=== PATIENT | female | born 1960 | race Two or more races ===

== ENCOUNTER 2018-10-03 17:35 | Inpatient (IN) | payer MEDICARE, OTHER ==
[~2018-10-03] VITALS: Ht 154.9 cm; Wt 63.7 kg
[2018-10-03] MEDS ORDERED: PRAZ1 PO (17:59)
[2018-10-03] MEDS ORDERED: FOLI1 PO (17:59)
[2018-10-03] MEDS ORDERED: DICY20 PO (17:59)
[2018-10-03] MEDS ORDERED: DIVA250T45 PO (17:59)
[2018-10-03] MEDS ORDERED: CEPH500 PO (17:59)
[2018-10-03] MEDS ORDERED: ZOLP10TA7 PO (17:59)
[2018-10-03] MEDS ORDERED: TERB250 PO (17:59)
[2018-10-03] MEDS ORDERED: CHOL200059 PO (17:59)
[2018-10-03] MEDS ORDERED: METO25XL PO (17:59)
[2018-10-03] MEDS ORDERED: CHOL378P PO (17:59)
[2018-10-03] MEDS ORDERED: SODIUM CHLORIDE 0.9% 1,000 ML IV ONE (18:30)
[2018-10-03 18:57] LABS: BASOPHILS % (AUTO) 0.3 % (0.0-2.0); EOSINOPHILS % (AUTO) 0 % (1.0-6.0); HEMATOCRIT 38.9 % (36-46); HEMOGLOBIN 12.5 g/dL (12.0-16.0); LYMPHOCYTES # (AUTO) 1.2 K/uL (1.0-4.8); LYMPHOCYTES % (AUTO) 8.3 % (22.0-44.0); MEAN CORPUSCULAR HEMOGLOBIN 28.3 pg (26.0-34.0); MEAN CORPUSCULAR HGB CONC 32.1 G/dL (31.0-37.0); MEAN CORPUSCULAR VOLUME 88 fL (80-100); NEUTROPHILS # (AUTO) 11.8 K/uL (1.8-7.7); NEUTROPHILS % (AUTO) 84.4 % (40.0-70.0); PLATELET COUNT (AUTO) 259 K/uL (150-450)
[2018-10-03 19:13] LABS: ANION GAP 12 mmol/L (8-16); CALCIUM, TOTAL 9.5 mg/dL (8.8-10.5); CARBON DIOXIDE 25 mmol/L (22-29); CHLORIDE 102 mmol/L (98-107); CREATININE 0.78 mg/dL (0.60-1.30); GLOMERULAR FILTR. RATE CALC > 60 mL/min (>60); GLUCOSE,RANDOM 110 mg/dL (70-110); SODIUM SERUM 139 mmol/L (136-145); UREA NITROGEN, BLOOD 15 mg/dL (7-18)
[2018-10-03 19:19] LABS: ALANINE AMINOTRANSFERASE 30 U/L (12-78); ALBUMIN 3.1 g/dL (3.4-5.0); ALKALINE PHOSPHATASE 106 U/L (46-116); ASPARTATE AMINOTRANSFERASE 30 U/L (15-37); BILIRUBIN,TOTAL 0.3 mg/dL (0.1-1.0); TOTAL PROTEIN, SERUM 7.5 g/dL (6.4-8.2)
[2018-10-03 23:15] LABS: APPEARANCE,URINE CLEAR (CLEAR); BILIRUBIN,URINE NEGATIVE (NEGATIVE); GLUCOSE, URINE (UA) NEGATIVE (NEGATIVE); KETONES,URINE TRACE mg/dL (NEGATIVE); LEUKOCYTE ESTERASE ,URINE NEGATIVE (NEGATIVE); NITRATE,URINE NEGATIVE (NEGATIVE); OCCULT BLOOD,URINE NEGATIVE (NEGATIVE); PROTEIN,URINE NEGATIVE (NEGATIVE); UROBILINOGEN,URINE 0.2 mg/dL (<=1.0)
[2018-10-04] VITALS (7 sets, daily range): BP systolic 100–151; BP diastolic 50–81
[2018-10-04] MEDS ORDERED: 0.9% SODIUM CHLORIDE 10 ML SYRINGE IVP PRN ×2 (00:45→05:00)
[2018-10-04] MEDS ORDERED: ACETAMINOPHEN 325 MG TABLET PO PRN ×2 (00:45→05:00)
[2018-10-04] MEDS ORDERED: ONDANSETRON HCL 4 MG/2 ML VIAL IVP PRN ×2 (00:45→05:00)
[2018-10-04] MEDS ORDERED: SODIUM CHLORIDE 0.9% 1,000 ML IV ONE ×2 (00:45)
[2018-10-04] MEDS ORDERED: SODIUM CHLORIDE 0.9% 250 ML IV ONE ×2 (01:04→02:23)
[2018-10-04 01:18] LABS: C-REACTIVE PROTEIN QUANT 1.85 mg/dL (0.00-0.30)
[2018-10-04 01:25] LABS: LACTIC ACID 1.3 mmol/L (0.4-2.0)
[2018-10-04] MEDS ORDERED: CefTRIAXone 1 GM/DEXTROSE 50 ML IV ONE (01:30)
[2018-10-04] MEDS ORDERED: ACETAMINOPHEN 1000 MG/ISO-OSM 100 ML IV ONE (01:45)
[2018-10-04] MEDS ORDERED: ZOLPIDEM TARTRATE 5 MG TABLET PO PRN (05:00)
[2018-10-04] MEDS ORDERED: MAGNESIUM SULFATE 2 GM/WATER 50 ML IV PRN (05:00)
[2018-10-04] MEDS ORDERED: IPRATROPIUM BROMIDE 0.5 MG/2.5 ML NEB SOLUTION NEB PRN (05:00)
[2018-10-04] MEDS ORDERED: POTASSIUM CHL 10 MEQ/WATER 50 ML IV PRN (05:00)
[2018-10-04] MEDS ORDERED: POTASSIUM CHLORIDE 20 MEQ ER TABLET PO PRN (05:00)
[2018-10-04] MEDS ORDERED: MAGNESIUM OXIDE 400 MG TABLET PO PRN (05:00)
[2018-10-04] MEDS ORDERED: ALBUTEROL SULFATE 2.5 MG/0.5 ML NEB SOLUTION NEB PRN (05:00)
[2018-10-04] MEDS ORDERED: MAGNESIUM SULFATE 4 GM/WATER 100 ML IV PRN (05:00)
[2018-10-04] MEDS: SODIUM CHLORIDE 0.9% 1,000 ML IV SCH ×2 (05:41→21:36)
[2018-10-04 07:38] LABS: ALBUMIN 2.4 g/dL (3.4-5.0)
[2018-10-04] MEDS ORDERED: ALBUTEROL SULFATE 2.5 MG/0.5 ML NEB SOLUTION NEB SCH (08:00)
[2018-10-04] MEDS ORDERED: IPRATROPIUM BROMIDE 0.5 MG/2.5 ML NEB SOLUTION NEB SCH (08:00)
[2018-10-04] MEDS: PANTOPRAZOLE SODIUM 40 MG DR TABLET PO SCH (09:22)
[2018-10-04] MEDS: CHOLECALCIFEROL (VIT D3) 2,000 UNITS TABLET PO SCH (09:22)
[2018-10-04] MEDS: DICYCLOMINE HCL 20 MG TABLET PO SCH (09:22)
[2018-10-04] MEDS: METOPROLOL SUCCINATE 25 MG ER TABLET PO SCH (09:22)
[2018-10-04] MEDS: FOLIC ACID 1 MG TABLET PO SCH (09:22)
[2018-10-04] MEDS: HEPARIN SODIUM,PORCINE 5,000 UNITS/ML VIAL SQ SCH ×2 (09:22→17:02)
[2018-10-04] MEDS: TERBINAFINE HCL 250 MG TABLET PO SCH (09:22)
[2018-10-04] MEDS: DOXYCYCLINE HYCLATE 100 MG in DEXTROSE 5%-WATER 100 ML IV SCH ×2 (13:43→21:37)
[2018-10-04] MEDS: PRAZOSIN HCL 1 MG CAPSULE PO SCH (21:36)
[2018-10-05] MEDS: HEPARIN SODIUM,PORCINE 5,000 UNITS/ML VIAL SQ SCH ×3 (00:52→17:07)
[2018-10-05] MEDS: CefTRIAXone 1 GM/DEXTROSE 50 ML IV SCH (00:54)
[2018-10-05 05:36] VITALS: BP 123/67
[2018-10-05 06:47] LABS: BASOPHILS % (AUTO) 0.2 % (0.0-2.0); EOSINOPHILS % (AUTO) 0.4 % (1.0-6.0); HEMATOCRIT 33.7 % (36-46); HEMOGLOBIN 10.9 g/dL (12.0-16.0); LYMPHOCYTES # (AUTO) 3.3 K/uL (1.0-4.8); MEAN CORPUSCULAR HEMOGLOBIN 28.6 pg (26.0-34.0); MEAN CORPUSCULAR HGB CONC 32.3 G/dL (31.0-37.0); MEAN CORPUSCULAR VOLUME 89 fL (80-100); MONOCYTES % (AUTO) 7.7 % (2.0-9.0); NEUTROPHILS # (AUTO) 9.2 K/uL (1.8-7.7); NEUTROPHILS % (AUTO) 67.7 % (40.0-70.0); PLATELET COUNT (AUTO) 240 K/uL (150-450); RED CELL DISTRIBUTION WIDTH 14.1 % (11.5-14.5)
[2018-10-05 06:59] LABS: ANION GAP 9 mmol/L (8-16); CALCIUM, TOTAL 8.6 mg/dL (8.8-10.5); CARBON DIOXIDE 28 mmol/L (22-29); CHLORIDE 104 mmol/L (98-107); CREATININE 0.59 mg/dL (0.60-1.30); GLOMERULAR FILTR. RATE CALC > 60 mL/min (>60); GLUCOSE,RANDOM 83 mg/dL (70-110); POTASSIUM 3.6 mmol/L (3.5-5.1); SODIUM SERUM 141 mmol/L (136-145); UREA NITROGEN, BLOOD 7 mg/dL (7-18)
[2018-10-05 08:07] VITALS: BP 149/74
[2018-10-05] MEDS: SODIUM CHLORIDE 0.9% 1,000 ML IV SCH (08:42)
[2018-10-05] MEDS: PANTOPRAZOLE SODIUM 40 MG DR TABLET PO SCH (08:42)
[2018-10-05] MEDS: FOLIC ACID 1 MG TABLET PO SCH (08:42)
[2018-10-05] MEDS: METOPROLOL SUCCINATE 25 MG ER TABLET PO SCH (08:42)
[2018-10-05] MEDS: TERBINAFINE HCL 250 MG TABLET PO SCH (08:43)
[2018-10-05] MEDS: DICYCLOMINE HCL 20 MG TABLET PO SCH (08:43)
[2018-10-05] MEDS: CHOLECALCIFEROL (VIT D3) 2,000 UNITS TABLET PO SCH (08:43)
[2018-10-05] MEDS: DOXYCYCLINE HYCLATE 100 MG in DEXTROSE 5%-WATER 100 ML IV SCH ×2 (08:46→20:52)
[2018-10-05] MEDS ORDERED: MAGNESIUM SULFATE 2 GM/WATER 50 ML IV ONE ×2 (11:00→11:30)
[2018-10-05 11:20] VITALS: BP 130/70
[2018-10-05 15:29] VITALS: BP 119/74
[2018-10-05 19:41] VITALS: BP 119/78
[2018-10-05] MEDS: PRAZOSIN HCL 1 MG CAPSULE PO SCH (20:52)
[2018-10-05 23:58] VITALS: BP 120/72
[2018-10-06] VITALS (7 sets, daily range): BP systolic 118–142; BP diastolic 62–101
[2018-10-06] MEDS: SODIUM CHLORIDE 0.9% 1,000 ML IV SCH ×2 (00:13→15:27)
[2018-10-06] MEDS: CefTRIAXone 1 GM/DEXTROSE 50 ML IV SCH (00:14)
[2018-10-06] MEDS: HEPARIN SODIUM,PORCINE 5,000 UNITS/ML VIAL SQ SCH ×3 (00:14→15:33)
[2018-10-06 06:30] LABS: BASOPHILS % (AUTO) 0.4 % (0.0-2.0); EOSINOPHILS % (AUTO) 0.6 % (1.0-6.0); HEMATOCRIT 35.3 % (36-46); HEMOGLOBIN 11.4 g/dL (12.0-16.0); LYMPHOCYTES # (AUTO) 3.1 K/uL (1.0-4.8); LYMPHOCYTES % (AUTO) 29.9 % (22.0-44.0); MEAN CORPUSCULAR HEMOGLOBIN 28.9 pg (26.0-34.0); MEAN CORPUSCULAR HGB CONC 32.2 G/dL (31.0-37.0); MEAN CORPUSCULAR VOLUME 90 fL (80-100); MONOCYTES # (AUTO) 0.9 K/uL (0.1-1.0); MONOCYTES % (AUTO) 8.5 % (2.0-9.0); NEUTROPHILS # (AUTO) 6.3 K/uL (1.8-7.7); NEUTROPHILS % (AUTO) 60.6 % (40.0-70.0); PLATELET COUNT (AUTO) 249 K/uL (150-450); RED BLOOD CELL COUNT(AUTO) 3.93 MIL/uL (4.00-5.20)
[2018-10-06 06:41] LABS: ANION GAP 9 mmol/L (8-16); CALCIUM, TOTAL 8.8 mg/dL (8.8-10.5); CARBON DIOXIDE 27 mmol/L (22-29); CHLORIDE 105 mmol/L (98-107); CREATININE 0.59 mg/dL (0.60-1.30); GLOMERULAR FILTR. RATE CALC > 60 mL/min (>60); GLUCOSE,RANDOM 89 mg/dL (70-110); POTASSIUM 3.5 mmol/L (3.5-5.1); SODIUM SERUM 141 mmol/L (136-145); UREA NITROGEN, BLOOD 8 mg/dL (7-18)
[2018-10-06] MEDS: PANTOPRAZOLE SODIUM 40 MG DR TABLET PO SCH (08:03)
[2018-10-06] MEDS: CHOLECALCIFEROL (VIT D3) 2,000 UNITS TABLET PO SCH (08:03)
[2018-10-06] MEDS: METOPROLOL SUCCINATE 25 MG ER TABLET PO SCH (08:03)
[2018-10-06] MEDS: TERBINAFINE HCL 250 MG TABLET PO SCH (08:03)
[2018-10-06] MEDS: FOLIC ACID 1 MG TABLET PO SCH (08:03)
[2018-10-06] MEDS: DICYCLOMINE HCL 20 MG TABLET PO SCH (08:04)
[2018-10-06] MEDS: DOXYCYCLINE HYCLATE 100 MG in DEXTROSE 5%-WATER 100 ML IV SCH ×2 (08:04→21:01)
[2018-10-06] MEDS: PRAZOSIN HCL 1 MG CAPSULE PO SCH (20:59)
[2018-10-07] MEDS: CefTRIAXone 1 GM/DEXTROSE 50 ML IV SCH (00:12)
[2018-10-07] MEDS: HEPARIN SODIUM,PORCINE 5,000 UNITS/ML VIAL SQ SCH ×3 (00:13→16:48)
[2018-10-07 04:34] VITALS: BP 127/82
[2018-10-07 05:31] LABS: BASOPHILS % (AUTO) 0.3 % (0.0-2.0); EOSINOPHILS % (AUTO) 0.7 % (1.0-6.0); HEMATOCRIT 35.4 % (36-46); HEMOGLOBIN 11.4 g/dL (12.0-16.0); LYMPHOCYTES # (AUTO) 4.3 K/uL (1.0-4.8); LYMPHOCYTES % (AUTO) 42.8 % (22.0-44.0); MEAN CORPUSCULAR HEMOGLOBIN 28.6 pg (26.0-34.0); MEAN CORPUSCULAR HGB CONC 32.1 G/dL (31.0-37.0); MEAN CORPUSCULAR VOLUME 89 fL (80-100); MONOCYTES % (AUTO) 9.6 % (2.0-9.0); NEUTROPHILS # (AUTO) 4.6 K/uL (1.8-7.7); NEUTROPHILS % (AUTO) 46.6 % (40.0-70.0); PLATELET COUNT (AUTO) 270 K/uL (150-450); RED BLOOD CELL COUNT(AUTO) 3.97 MIL/uL (4.00-5.20)
[2018-10-07 05:41] LABS: ANION GAP 8 mmol/L (8-16); CARBON DIOXIDE 28 mmol/L (22-29); CHLORIDE 105 mmol/L (98-107); CREATININE 0.58 mg/dL (0.60-1.30); GLOMERULAR FILTR. RATE CALC > 60 mL/min (>60); GLUCOSE,RANDOM 90 mg/dL (70-110); POTASSIUM 3.7 mmol/L (3.5-5.1); SODIUM SERUM 141 mmol/L (136-145); UREA NITROGEN, BLOOD 8 mg/dL (7-18)
[2018-10-07] MEDS: SODIUM CHLORIDE 0.9% 1,000 ML IV SCH (08:08)
[2018-10-07] MEDS: FOLIC ACID 1 MG TABLET PO SCH (08:08)
[2018-10-07] MEDS: TERBINAFINE HCL 250 MG TABLET PO SCH (08:08)
[2018-10-07] MEDS: METOPROLOL SUCCINATE 25 MG ER TABLET PO SCH (08:08)
[2018-10-07] MEDS: PANTOPRAZOLE SODIUM 40 MG DR TABLET PO SCH (08:08)
[2018-10-07] MEDS: DICYCLOMINE HCL 20 MG TABLET PO SCH (08:08)
[2018-10-07] MEDS: CHOLECALCIFEROL (VIT D3) 2,000 UNITS TABLET PO SCH (08:09)
[2018-10-07] MEDS: DOXYCYCLINE HYCLATE 100 MG in DEXTROSE 5%-WATER 100 ML IV SCH ×2 (08:18→20:07)
[2018-10-07 08:24] VITALS: BP 131/87
[2018-10-07 11:26] VITALS: BP 132/77
[2018-10-07 16:11] VITALS: BP 117/56
[2018-10-07] MEDS: PRAZOSIN HCL 1 MG CAPSULE PO SCH (20:07)
[2018-10-07] MEDS: DIVALPROEX SODIUM 250 MG ER TABLET PO SCH (20:07)
[2018-10-07 20:10] VITALS: BP 137/98
[2018-10-08 00:15] VITALS: BP 136/54
[2018-10-08] MEDS: HEPARIN SODIUM,PORCINE 5,000 UNITS/ML VIAL SQ SCH ×3 (00:38→16:14)
[2018-10-08] MEDS: SODIUM CHLORIDE 0.9% 1,000 ML IV SCH ×2 (00:38→12:32)
[2018-10-08] MEDS: CefTRIAXone 1 GM/DEXTROSE 50 ML IV SCH (00:38)
[2018-10-08 04:20] VITALS: BP 147/70
[2018-10-08 06:03] LABS: BASOPHILS % (AUTO) 0.3 % (0.0-2.0); EOSINOPHILS % (AUTO) 0.4 % (1.0-6.0); HEMATOCRIT 35.8 % (36-46); HEMOGLOBIN 11.6 g/dL (12.0-16.0); LYMPHOCYTES # (AUTO) 4.5 K/uL (1.0-4.8); LYMPHOCYTES % (AUTO) 47.5 % (22.0-44.0); MEAN CORPUSCULAR HEMOGLOBIN 28.7 pg (26.0-34.0); MEAN CORPUSCULAR HGB CONC 32.3 G/dL (31.0-37.0); MEAN CORPUSCULAR VOLUME 89 fL (80-100); MONOCYTES # (AUTO) 0.9 K/uL (0.1-1.0); NEUTROPHILS % (AUTO) 41.8 % (40.0-70.0); PLATELET COUNT (AUTO) 279 K/uL (150-450); RED BLOOD CELL COUNT(AUTO) 4.03 MIL/uL (4.00-5.20); RED CELL DISTRIBUTION WIDTH 13.9 % (11.5-14.5)
[2018-10-08 06:18] LABS: ANION GAP 8 mmol/L (8-16); CALCIUM, TOTAL 9.2 mg/dL (8.8-10.5); CARBON DIOXIDE 27 mmol/L (22-29); CHLORIDE 106 mmol/L (98-107); CREATININE 0.65 mg/dL (0.60-1.30); GLOMERULAR FILTR. RATE CALC > 60 mL/min (>60); GLUCOSE,RANDOM 93 mg/dL (70-110); POTASSIUM 3.9 mmol/L (3.5-5.1); SODIUM SERUM 141 mmol/L (136-145); UREA NITROGEN, BLOOD 9 mg/dL (7-18)
[2018-10-08 07:24] VITALS: BP 146/79
[2018-10-08] MEDS: PANTOPRAZOLE SODIUM 40 MG DR TABLET PO SCH (09:06)
[2018-10-08] MEDS: FOLIC ACID 1 MG TABLET PO SCH (09:06)
[2018-10-08] MEDS: DIVALPROEX SODIUM 250 MG ER TABLET PO SCH (09:06)
[2018-10-08] MEDS: METOPROLOL SUCCINATE 25 MG ER TABLET PO SCH (09:06)
[2018-10-08] MEDS: TERBINAFINE HCL 250 MG TABLET PO SCH (09:07)
[2018-10-08] MEDS: CHOLECALCIFEROL (VIT D3) 2,000 UNITS TABLET PO SCH (09:07)
[2018-10-08] MEDS: DICYCLOMINE HCL 20 MG TABLET PO SCH (09:07)
[2018-10-08] MEDS: DOXYCYCLINE HYCLATE 100 MG in DEXTROSE 5%-WATER 100 ML IV SCH (10:24)
[2018-10-08 11:50] VITALS: BP 136/85
[2018-10-08 15:10] VITALS: BP 132/78
== END 2018-10-08 19:15 | DRG 871 ==
LOC: EMS 17:37 → 5S 10-04 00:30
PROVIDERS: ADMIT Internal Medicine; ATTEND Internal Medicine
DX: A41.9 Sepsis, unspecified organism (principal); G92 Toxic encephalopathy; J18.9 Pneumonia, unspecified organism; R65.20 Severe sepsis without septic shock; E86.0 Dehydration; T42.6X5A Adverse effect of other antiepileptic and sedative-hypnotic drugs, initial encounter; E86.9 Volume depletion, unspecified; L03.031 Cellulitis of right toe; F79 Unspecified intellectual disabilities; F20.9 Schizophrenia, unspecified; Z79.899 Other long term (current) drug therapy
CPT/HCPCS: 83605; 83735; 84145; 85651; 86140; 87040; 87081; 87205; 93005; 96365; 97163; 97167; 97535; J0131; J0690; J0696; J1644; J2405; J3475; J3490; J7030; J7050; J7060